=== PATIENT | female | born 1970 | race Caucasian/White ===

== ENCOUNTER 2018-01-08 07:33 | Day surgery (SDC) | payer OTHER ==
[2018-01-08] MEDS ORDERED: IRON SUCROSE INJECTION 200 MG in SODIUM CHLORIDE 100 ML IVPB ONE (13:00)
[2018-01-08 17:49] VITALS: TEMP 98.2
[2018-01-08 17:52] VITALS: BP 150/76; PULSE 68
== END 2018-01-08 17:30 | disposition home or self-care (01) ==
LOC: JONCCHEMO 07:33 → J7W 15:58 → JONCCHEMO 17:30
PROVIDERS: ATTEND Internal Medicine Hematology & Oncology
PROC: 3E013GC Introduction of Other Therapeutic Substance into Subcutaneous Tissue, Percutaneous Approach (ICD-10-PCS; principal; 2018-01-08)
DX: D50.9 Iron deficiency anemia, unspecified (principal)
CPT/HCPCS: 96365; J1756

== ENCOUNTER 2018-02-12 07:42 | Day surgery (SDC) | payer OTHER ==
[2018-02-12] MEDS ORDERED: IRON SUCROSE INJECTION 200 MG in SODIUM CHLORIDE 100 ML IVPB ONE (10:00)
[2018-02-12 16:45] VITALS: TEMP 98.1
[2018-02-12 17:02] VITALS: BP 149/85; PULSE 69
== END 2018-02-12 17:04 | disposition home or self-care (01) ==
LOC: JONCCHEMO 07:42 → JONCNONCHE 07:42 → J7W 16:48 → JONCNONCHE 17:04
PROVIDERS: ATTEND Internal Medicine Hematology & Oncology
PROC: 3E033GC Introduction of Other Therapeutic Substance into Peripheral Vein, Percutaneous Approach (ICD-10-PCS; principal; 2018-02-12)
DX: D50.9 Iron deficiency anemia, unspecified (principal)
CPT/HCPCS: 96365; J1756

== ENCOUNTER 2018-12-03 08:12 | Day surgery (SDC) | payer OTHER ==
[2018-11-30 10:31] VITALS: BMI 27.4
[2018-12-03 10:52] VITALS: TEMP 97.6
[2018-12-03 11:14] VITALS: BP 145/67; PULSE 66
== END 2018-12-03 11:30 | disposition home or self-care (01) ==
LOC: FASU-ENDO 08:12
PROVIDERS: ATTEND Internal Medicine Gastroenterology
PROC: 0DJD8ZZ Inspection of Lower Intestinal Tract, Via Natural or Artificial Opening Endoscopic (ICD-10-PCS; principal; 2018-12-03 10:24)
DX: Z12.11 Encounter for screening for malignant neoplasm of colon (principal); Z83.71 Family history of colonic polyps
CPT/HCPCS: 84703

== ENCOUNTER 2021-01-26 09:19 | Emergency (ER) | payer OTHER ==
[2021-01-26 09:28] VITALS: BP 173/98; PULSE 93; TEMP 99.6; BMI 26.7
== END 2021-01-26 13:02 | disposition home or self-care (01) ==
LOC: FER 09:19
DX: H57.12 Ocular pain, left eye (principal); M54.2 Cervicalgia; T07.XXXA Unspecified multiple injuries, initial encounter; J34.2 Deviated nasal septum; J33.9 Nasal polyp, unspecified; Y04.0XXA Assault by unarmed brawl or fight, initial encounter; Y92.9 Unspecified place or not applicable
CPT/HCPCS: 70486-TC; 72125-TC; 99284-25